=== PATIENT | male | born 1965 ===

== ENCOUNTER 2018-06-23 12:27 | Outpatient (REF) | payer BC, SELFPAY ==
[2018-06-23 22:01] LABS: Anion Gap 7.9 mmol/L (3-11); BUN 12 mg/dL (7-18); CO2 29.1 mmol/L (21.0-32.0); CREATININE 1.01 mg/dL (0.70-1.30); Calcium 9.2 mg/dL (8.5-10.1); Chloride 103 mmol/L (98-107); Glucose 88 mg/dL (70-100); Sodium 140 mmol/L (136-145)
== END 2018-06-23 12:47 ==
LOC: NCHCN 12:27
PROVIDERS: PCP Family Medicine; Visit Provider Internal Medicine
DX: I10 Essential (primary) hypertension (principal); L30.9 Dermatitis, unspecified
CPT/HCPCS: 80048

== ENCOUNTER 2019-01-24 08:17 | Outpatient (REF) | payer OTHER, SELFPAY ==
[2019-01-24 21:58] LABS: Abs Immature Grans 0.01 k/cumm (0.0-0.09); Absolute Basophil Count 0.04 k/cumm (0.0-0.2); Absolute Eosinophil Count 0.22 k/cumm (0.0-0.7); Absolute Lymphocyte Count 1.29 k/cumm (1.2-3.4); Absolute Monocyte Count 0.49 k/cumm (0.11-0.7); Absolute Neutrophil Count 3.89 k/cumm (1.2-6.7); Basophils % 0.7; Eosinophils % 3.7; HGB 15.9 g/dL (13.5-17.5); Immature Grans % 0.2; Lymphocytes % 21.7; Mean Corp. HGB Concentration 34.6 g/dL (32.0-36.0); Mean Corpuscular Hemoglobin 32.5 pg (27.0-33.0); Mean Corpuscular Volume 94.1 fL (80-95); Monocytes % 8.2; Neutrophils % 65.5; Platelet Count 255 x1000/uL (130-400); RBC 4.89 m/cumm (4.50-6.00); White Blood Cell Count 5.94 k/cumm (4.4-10.8)
[2019-01-24 22:20] LABS: ALT 40 U/L (16-63); AST 17 U/L (15-37); Albumin 3.8 g/dL (3.4-5.0); Alkaline Phosphatase 49 U/L (46-116); Anion Gap 10.6 mmol/L (3-11); BUN 12 mg/dL (7-18); Bilirubin, Total 0.6 mg/dL (0.2-1.0); CO2 26.4 mmol/L (21.0-32.0); CREATININE 1.07 mg/dL (0.70-1.30); Calcium 8.8 mg/dL (8.5-10.1); Chloride 105 mmol/L (98-107); Glucose 98 mg/dL (70-100); Potassium 3.9 mmol/L (3.5-5.1); Sodium 142 mmol/L (136-145); TSH (W/Ref FT4) 7.25 uIU/mL (0.36-3.74); Total Protein 7.3 g/dL (6.4-8.2)
[2019-01-24 23:26] LABS: FREE T4 0.69 ng/dL (0.76-1.46)
== END 2019-01-24 08:37 ==
LOC: NCHCN 08:17
PROVIDERS: PCP Family Medicine; Visit Provider Family Medicine
DX: I10 Essential (primary) hypertension (principal); Z13.220 Encounter for screening for lipoid disorders
CPT/HCPCS: 80053; 84439; 84443; 85025